=== PATIENT | male | born 1985 | race Caucasian/White ===

== ENCOUNTER 2017-01-20 16:48 | Emergency (ER) | payer SELFPAY ==
--- NOTE | 2017-01-20 17:06 | ER Document Report ---
ED Medical Screen (RME) - General Stated Complaint: DIZZINESS Notes: Patient states he has been dizzy for a few days and fell on his right shoulder and arm. States he feels confused and thinks he may have had a seizure, although he denies previous history of seizures. No fever. No cough cold symptoms. I have greeted and performed a rapid initial assessment of this patient. A comprehensive ED assessment and evaluation of the patient, analysis of test results and completion of the medical decision making process will be conducted by additional ED providers. TRAVEL OUTSIDE OF THE [place] IN LAST 30 DAYS: No - Related Data Allergies/Adverse Reactions: No Known Allergies Allergy (Unverified 07/19/16 07:38) Physical Exam - Vital signs Vitals: Temp Pulse Resp BP Pulse Ox 97.4 F 113 H 18 121/73 96 01/20/17 16:55 01/20/17 16:55 01/20/17 16:55 01/20/17 16:55 01/20/17 16:55 - Cardiovascular Rhythm: Tachycardia Heart sounds: Normal auscultation - Extremities Notes: Patient able to move right shoulder without difficulty. Course - Vital Signs Vital signs: Temp Pulse Resp BP Pulse Ox 97.4 F 113 H 18 121/73 96 01/20/17 16:55 01/20/17 16:55 01/20/17 16:55 01/20/17 16:55 01/20/17 16:55
[2017-01-20 17:35] LABS: ABSOLUTE EOSINOPHILS # (AUTO) 0.1 10^3/uL (0.0-0.6); ABSOLUTE LYMPHOCYTES (AUTO) 1.6 10^3/uL (0.5-4.7); ABSOLUTE MONOCYTES (AUTO) 0.9 10^3/uL (0.1-1.4); ABSOLUTE NEUT (AUTO) 6.7 10^3/uL (1.7-8.2); BASOPHILS % (AUTO) 0.5 % (0-2); EOSINOPHILS % (AUTO) 1.4 % (0-6); HEMATOCRIT 44.5 % (37.9-51.0); HEMOGLOBIN 15.2 g/dL (13.5-17.0); HGB HCT DIFFERENCE 1.1; LYMPHOCYTES % (AUTO) 17.4 % (13-45); MEAN CORPUSCULAR HEMOGLOBIN 29.6 pg (27.0-33.4); MEAN CORPUSCULAR HGB CONC 34.1 g/dL (32.0-36.0); MEAN CORPUSCULAR VOLUME 87 fl (80-97); MONOCYTES % (AUTO) 9.6 % (3-13); RED BLOOD COUNT 5.14 10^6/uL (4.35-5.55); RED CELL DISTRIBUTION WIDTH 12.8 % (11.5-14.0); SEGMENTED NEUTROPHILS % (AUTO) 71.1 % (42-78); WHITE BLOOD COUNT 9.4 10^3/uL (4.0-10.5)
[2017-01-20 17:41] LABS: APPEARANCE,URINE CLEAR; BILIRUBIN,URINE NEGATIVE (NEGATIVE); GLUCOSE, URINE NEGATIVE (NEGATIVE); KETONES,URINE NEGATIVE (NEGATIVE); LEUKOCYTE ESTERASE,URINE NEGATIVE (NEGATIVE); NITRITE,URINE NEGATIVE (NEGATIVE); PROTEIN,URINE NEGATIVE (NEGATIVE); URINE SPECIFIC GRAVITY 1.002; UROBILINOGEN,URINE NEGATIVE mg/dL (<2.0)
[2017-01-20 17:53] LABS: URINE BARBITURATES SCREEN NEGATIVE; URINE METHADONE SCREEN NEGATIVE; URINE OPIATES LOW NEGATIVE; URINE PHENCYCLIDINE SCREEN NEGATIVE
[2017-01-20 17:57] LABS: ALANINE AMINOTRANSFERASE 27 U/L (21-72); ALBUMIN 4.5 g/dL (3.5-5.0); ALKALINE PHOSPHATASE 56 U/L (38-126); ANION GAP 14 (5-19); ASPARTATE AMINO TRANSFERASE 22 U/L (17-59); BILIRUBIN,DIRECT 0.3 mg/dL (0.0-0.4); BILIRUBIN,TOTAL 0.5 mg/dL (0.2-1.3); BLOOD UREA NITROGEN 13 mg/dL (7-20); CALCIUM 9.7 mg/dL (8.4-10.2); CARBON DIOXIDE 26 mmol/L (22-30); CHLORIDE 102 mmol/L (98-107); CREATININE RESULT 0.98 mg/dL (0.52-1.25); GLUCOSE 85 mg/dL (75-110); LIPASE 131.1 U/L (23-300); POTASSIUM 3.9 mmol/L (3.6-5.0); TOTAL PROTEIN 7.5 g/dL (6.3-8.2)
--- NOTE | 2017-01-20 20:42 | ER Document Report ---
ED General - General Chief Complaint: Fall Stated Complaint: DIZZINESS Mode of Arrival: Ambulatory Information source: Patient, [facility] Records Notes: This is a 31-year-old male with a history of schizophrenia who states that he has been off all of his medications for the past 3 or [address] months[address] himself to the ER today after waking up on the floor this morning. He states that he woke up on the floor gripping and pillow very tightly and his head was shaking up and down and he said he couldn't stop the movement of his head and was afraid he might be having a seizure. He has no history of seizures. There was no bowel or bladder incontinence. Patient was aware of the event. He said once he could finally get his head to stop moving he was able to get up and noticed that he had right shoulder pain. He called his mother on the phone who told him he might have had a seizure and recommended that he come to the ER. He has no other complaints at this time. He does endorse audio hallucinations and states that he hears voices "all the time" when asked if he has any thoughts of hurting himself he states "I don't want to talk about that" patient then states that he from time to time does have thoughts of hurting himself but not any at the moment and his last thoughts of hurting himself or in the past few days. He has no specific plan. At this time he has no complaints other than right shoulder pain. TRAVEL OUTSIDE OF THE [place] IN LAST 30 DAYS: No - Related Data Allergies/Adverse Reactions: No Known Allergies Allergy (Verified 01/20/17 17:06) Past Medical History - General Information source: Patient, [facility] Records - Social History Smoking Status: Former Smoker Chew tobacco use (# tins/day): No Frequency of alcohol use: None Drug Abuse: None Family History: None Renal/ Medical History: Denies: Hx Peritoneal Dialysis Psychiatric Medical History: Reports: Hx Schizophrenia Surgical Hx: Negative - Immunizations Hx Diphtheria, Pertussis, Tetanus Vaccination: Yes Review of Systems - Review of Systems Notes: Review of systems Limited secondary to patient cooperation. Constitutional: No symptoms reported. denies: Chills, Fever EENT: No symptoms reported Cardiovascular: No symptoms reported. denies: Chest pain Respiratory: No symptoms reported. denies: Cough, Short of breath Gastrointestinal: Abdominal pain - Pt has an upset stomach. No vomiting Genitourinary: No symptoms reported Musculoskeletal: See HPI Skin: No symptoms reported Neurological/Psychological: See HPI, Hallucinations, Suicidal ideation. denies : Headaches Physical Exam - Vital signs Vitals: Temp Pulse Resp BP Pulse Ox 97.4 F 113 H 18 121/73 96 01/20/17 16:55 01/20/17 16:55 01/20/17 16:55 01/20/17 16:55 01/20/17 16:55 - Notes Notes: PHYSICAL EXAMINATION: GENERAL: Well-appearing, well-nourished and in no acute distress. Appears sleepy and talks with eyes closed. Intermittently cooperative with interview. HEAD: Atraumatic, normocephalic. EYES: Pupils equal round and reactive to light, extraocular movements intact, sclera anicteric, conjunctiva are normal. ENT: nares patent, oropharynx clear without exudates. Moist mucous membranes. NECK: Normal range of motion, supple without lymphadenopathy. No midline TTP LUNGS: Breath sounds clear to auscultation bilaterally and equal. No wheezes rales or rhonchi. HEART: Regular rate and rhythm without murmurs ABDOMEN: Soft, nontender, normoactive bowel sounds. No guarding, no rebound. No masses appreciated. EXTREMITIES: Normal range of motion. Tenderness to anterior shoulder, FROM to shoulder and DNVI NEUROLOGICAL: Cranial nerves grossly intact. Normal speech, normal gait. Normal sensory, motor, and reflex exams. PSYCH: Normal mood, normal affect. SKIN: Warm, Dry, normal turgor, no rashes or lesions noted. Course - Re-evaluation Re-evalutation: 01/20/17 20:43 Patient with a history of schizophrenia and active auditory hallucinations. He has had transient subtle ideation but is not currently suicidal. He does agree to await psychiatric evaluation in the morning. - Vital Signs Vital signs: Temp Pulse Resp BP Pulse Ox 97.4 F 113 H 18 121/73 96 01/20/17 16:55 01/20/17 16:55 01/20/17 16:55 01/20/17 16:55 01/20/17 16:55 - Laboratory Result Diagrams: 01/20/17 17:15 01/20/17 17:15 Discharge - Discharge Clinical Impression: Auditory hallucinations Schizophrenia Qualifiers: Schizophrenia type: other Qualified Code(s): F20.89 - Other schizophrenia; F20.8 - Other schizophrenia Condition: Stable
[2017-01-21] MEDS ORDERED: IBUPROFEN 600 MG TABLET PO ONE (03:55)
--- NOTE | 2017-01-21 10:41 | ER Document Report ---
Doctor's Note Notes: 01/21/17 10:40 medical rounds: Chart reviewed and patient interviewed briefly. Patient complains of pain in the right shoulder secondary to a fall last night. He states he fell because he had a seizure. He says he does have a history of seizures, but takes no medications for this. When asked the frequency of his seizures he states perhaps 5 or 6 in a year. He states he has injured the right shoulder before, but never any fracture or surgery. He denies any other somatic complaints. Vital signs are normal. Laboratory values are satisfactory. Radiographic studies of the right shoulder show some osteolysis of the distal clavicle. On examination, the patient is alert, oriented, and coherent. He denies hallucinations at this time. The right acromioclavicular joint is mildly tender to palpation. There is no significant pain with passive motion of the shoulder. He is medically stable. He will be medicated with ibuprofen for the shoulder pain. Psychosocial evaluation is pending. 01/21/17 10:41
[2017-01-21] MEDS ORDERED: IBUPROFEN 800 MG TABLET PO ONE (10:45)
--- NOTE | 2017-01-21 11:07 | PSYCHOLOGICAL NOTE ---
Psych Note - Psych Note Psych Note: Patient is a 31 year old male who presented initially via POV after waking up on the floor clenching a pillow, due to possible seizure activity. Patient disclosed upon arrival that he is diagnosed with Schizophrenia and has not been on his medications. Patient endorsed A/V H and was held voluntarily to speak with psych. Patient this morning states he is struggling. He states he has been off his medications since September. He states he lives with his mother, who is out of state right now, and had to provide more financial assistance than normal for a months worth of bills, and was unable to meet his $5 deductible at [facility]. Patient states he was charged $5 to be seen, and was then provide with sample packets of Seroquel. He states he did well with 100 mg of Seroquel. He states he got nervous after missing a month, and then was afraid to go back. Patient states he carries a knife because he is being followed by individuals, and does not know why but is afraid he owes them money. Patient reports he lost his job this past week because he is manic and said things to the wrong people. 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 Patient states while his mother is out of town, his Aunt and Uncle are here and have been encouraging him to come to the ER. Patient states he called [facility], and was told to just walk in because it had been so long. Patient states he is willing to do so. Patient states he can afford the $5 co pay, but not $50 for a prescription of Seroquel. Patient provided verbal consent to speak with his Aunt, although states she will likely be angry that he gave out her number. Patient denies wanting to harm himself or anyone else. Patient states the voices do tell him to do things, such as give the information systems security specialist hell about them taking his knife. Patient's Aunt, Geraldine states: the patient has been through this before, saying people were watching him before, saw a psychiatrist, etc. She states she is physically unable to assist the patient in walking in to [facility] because she has lung cancer and has radiation Monday am. Suggested calling his mother to inquire about her return. Patient's mother, Annia Stacy : she is unsure of her return as she is in [place] awaiting to see a shoulder specialist because she has a tear. She further reports she is unable to financially assist the patient in obtaining his meds as she herself is on disability. 298.9 (F29) Unspecified Schizophrenia Spectrum and Other Psychotic Disorder Presenting symptoms are similar to that of a psychotic disorder and are causing significant clinical distress in all domains of his life. At this time and in this setting there is not enough information to make a more specific diagnosis Patient is psychiatrically cleared for discharge and recommended to follow up with his former provider, [facility]. Patient demonstrates the ability to distinguish between AH and reality. Patient reports the people have been following him for 2 years, suggesting this is a chronic, fixated delusion. Patient demonstrated good problem solving abilities by calling his former provider, despite his anxiety and fear and is in agreement to follow up with [facility] as a walk in Monday morning. I have consulted with Dr. Minaya in regards to the care and management of this patient. ED MD is in agreement with disposition and recommendations.
[2017-01-21 11:12] VITALS: BP 122/67
== END 2017-01-21 11:23 | disposition home or self-care (01) ==
LOC: ER 16:48
DX: S43.51XA Sprain of right acromioclavicular joint, initial encounter (principal); R44.0 Auditory hallucinations; F20.89 Other schizophrenia; X58.XXXA Exposure to other specified factors, initial encounter; Z87.891 Personal history of nicotine dependence
CPT/HCPCS: 36415; 80053; 80307; 81001; 83690; 85025; 99285

== ENCOUNTER 2017-06-18 19:14 | Emergency (ER) | payer SELFPAY ==
--- NOTE | 2017-06-18 19:38 | ER Document Report ---
HPI - HPI Notes: Patient is a 31-year-old male who presents the ED complaining of left knee pain status post injury while being arrested per patient. Patient states that the mounted police officer "retched"his knee when he was being put into the squad car. Patient states that he has a tearing and searing pain in his left knee. Patient states that he has trouble ambulating because of the pain. The mounted police officer reports that the patient was moving the leg around without any difficulties and taking the police car thereafter when he figured out that he was going to be arrested. EMS states that they do not see any obvious signs of trauma or bruising to the left knee, and that he was using it without any difficulties on scene. The pain does not radiate. Patient has a history of bipolar. Patient states that he has been suicidal over the last 4 months without any action on his plans. Patient states that his plan is to have suicide by copy preparer. He refuses to answer if he is homicidal. he denies any acute plan or thoughts of wanting to end his life right now or in the upcoming days. Patient has not been taking his mental health medications. Patient denies any visual or auditory hallucinations. Denies any headache, fever, head injury, neck pain, chest pain, palpitations, syncope, cough, shortness of breath, wheeze , dyspnea, abdominal pain, nausea/vomiting/diarrhea, urinary retention, dysuria , hematuria, loss of control of bowel or bladder, numbness/tingling, saddle anesthesia, muscle paralysis/weakness, or rash. - ROS Notes: REVIEW OF SYSTEMS: CONSTITUTIONAL : Denies fever, chills, or sweats. Denies recent illness. EENT: Denies eye, ear, throat, or mouth pain or symptoms. Denies nasal or sinus congestion or discharge. Denies throat, tongue, or mouth swelling or difficulty swallowing. CARDIOVASCULAR: Denies chest pain. Denies palpitations or racing or irregular heart beat. Denies ankle edema. RESPIRATORY: Denies cough, cold, or chest congestion. Denies shortness of breath, difficulty breathing, or wheezing. GASTROINTESTINAL: Denies abdominal pain or distention. Denies nausea, vomiting , or diarrhea. Denies blood in vomitus, stools, or per rectum. Denies black, tarry stools. Denies constipation. GENITOURINARY: Denies difficulty urinating, painful urination, burning, frequency, blood in urine, or discharge. MUSCULOSKELETAL: see hpi SKIN: Denies rash, lesions or sores. NEUROLOGICAL: Denies confusion or altered mental status. Denies passing out or loss of consciousness. Denies dizziness or lightheadedness. Denies headache. Denies weakness or paralysis or loss of use of either side. Denies problems with gait or speech. PSYCHIATRIC: see hpi. ALL OTHER SYSTEMS REVIEWED AND NEGATIVE. Dictation was performed using [employer] voice recognition software Past Medical History - General Information source: Patient, [employer] - Social History Smoking Status: Current Every Day Smoker Family History: None Renal/ Medical History: Denies: Hx Peritoneal Dialysis Psychiatric Medical History: Reports: Hx Schizophrenia - Immunizations Hx Diphtheria, Pertussis, Tetanus Vaccination: Yes Vertical Provider Document - CONSTITUTIONAL Agree With Documented VS: Yes Notes: PHYSICAL EXAMINATION: GENERAL: Well-appearing, well-nourished and in no acute distress. In hand- cuffs. HEAD: Atraumatic, normocephalic. NECK: Normal range of motion, supple without lymphadenopathy LUNGS: Breath sounds clear to auscultation bilaterally and equal. No wheezes rales or rhonchi. HEART: Regular rate and rhythm without murmurs, rubs, gallops. Musculoskeletal: Lt knee: FROM to passive/active. Strength 5+/5. No abrasion, laceration, ecchymosis, or obvious deformity noted. + tenderness to light palpation (acting with pain out of proportion to stimulus) to anterior knee which turned into laughing thereafter. Suleiman neg. Ligamentous stable, but limited with patient resistance. N/V intact distal. Reflexes intact. Extremities: No cyanosis, clubbing, or edema b/l. Peripheral pulses 2+. Capillary refill less than 3 seconds. NEUROLOGICAL: Normal sensory, motor exams PSYCH: manic. SKIN: Warm, Dry, normal turgor, no rashes or lesions noted. - INFECTION CONTROL TRAVEL OUTSIDE OF THE [place] IN LAST 30 DAYS: No Course - Re-evaluation Re-evalutation: 06/18/17 19:30 Pt began acting violently while on the table after the exam. Violent Restraints were then placed. Dr. Branham consulted who came and visualized patients behavior as well. Reviewed plan of XR and discharge to police custody. Pt not actively suicidal at this time. Plan to release and the police can file for IVC if needed thereafter or upon release. 06/18/17 20:40 Patient is an afebrile, well-hydrated, 31-year-old male who presents the ED with left knee pain. Vitals are stable. PE otherwise unremarkable at this time. XR was unremarkable for any acute fracture or dislocation. Low risk/ suspicion for any open/closed/displaced fracture, compartment syndrome, or internal knee damage at this time; although, pt may need further eval with Ortho to fully investigate. Conservative measures for symptoms as needed otherwise as reviewed in discharge. Recheck with your PCM upon release from the shelter, or consult with shelter provider as needed. Consider consult with Ortho/physical therapy. Recheck with a provider/clinic recommended. Return to the ED with any worsening/concerning symptoms otherwise as reviewed discharge. Patient is in agreement. mounted police officer also in agreement. Discharge - Discharge Clinical Impression: Left knee pain Qualifiers: Chronicity: acute Qualified Code(s): M25.562 - Pain in left knee Condition: Stable Disposition: HOME, SELF-CARE Instructions: Ice & Elevation ([facility]), Sprained Knee ([facility]) Additional Instructions: Rest, Ice, Compression, Elevation Tylenol/ibuprofen as needed Light stretches daily Strength exercises as able Moist heat and massage may help F/u PCM/alf provider in 2-3 days for a recheck Schedule a f/u with a mental health clinic/provider for recheck when able Consider consult(s) with Orthopedics, physical therapy for ongoing/worsening symptoms Return to the ED with any worsening symptoms and/or development of fever, headache, chest pain, palpitations, syncope, shortness of breath, trouble breathing, abdominal pain, n/v/d, blood in stool/urine, loss of control of bowel /bladder, urinary retention, muscle weakness/paralysis, saddle anesthesia, numbness/tingling, suicidal/homicidal plan or action, visual/auditory hallucinations, or other worsening symptoms that are concerning to you. Forms: Elevated Blood Pressure, Smoking Cessation Education Referrals: [facility] [Provider Group] - Follow up as needed Mental Health [Provider Group] - Follow up as needed [facility] [Provider Group] - Follow up as needed
--- NOTE | 2017-06-18 20:18 | RADIOLOGY REPORT (SQ) ---
EXAM DESCRIPTION: KNEE LEFT 2 VIEWS COMPLETED DATE/TIME: 06/18/2017 8:03 pm REASON FOR STUDY: left knee pain COMPARISON: None. NUMBER OF VIEWS: Three views. TECHNIQUE: AP, lateral, and oblique radiographic images acquired of the left knee. LIMITATIONS: None. FINDINGS: MINERALIZATION: Normal. BONES: No acute fracture or dislocation. No worrisome bone lesions. JOINT: No effusion. SOFT TISSUES: No soft tissue swelling. No radio-opaque foreign body. OTHER: No other significant finding. IMPRESSION: NEGATIVE STUDY OF THE LEFT KNEE. NO RADIOGRAPHIC EVIDENCE OF ACUTE INJURY. TECHNICAL DOCUMENTATION: JOB ID: [id number] [employer]- All Rights Reserved
[2017-06-18 21:55] VITALS: BP 135/83
== END 2017-06-18 21:10 | disposition home or self-care (01) ==
LOC: ER 19:14
DX: M25.562 Pain in left knee (principal); F31.9 Bipolar disorder, unspecified; T43.96XA Underdosing of unspecified psychotropic drug, initial encounter; Z91.14 Patient's other noncompliance with medication regimen; R45.851 Suicidal ideations; R45.6 Violent behavior; F17.200 Nicotine dependence, unspecified, uncomplicated; Z78.1 Physical restraint status
CPT/HCPCS: 99284